=== PATIENT | male | born 1990 | race Two or more races ===

== ENCOUNTER 2023-06-29 20:09 | Emergency (ER) | payer OTHER ==
[~2023-06-29] VITALS: Ht 185.4 cm; Wt 82.0 kg
[2023-06-29] MEDS ORDERED: LORazepam 2MG/ML-1ML VIAL IV ONE ×2 (21:00→23:30)
[2023-06-29 21:03] LABS: Basophils # (auto) 0.1 10 ^3/uL (0-0.2); Basophils % (auto) 0.8 % (0.0-2.0); Eosinophils # (auto) 0 10 ^3/uL (0-0.8); Hematocrit 37.4 % (41.0-53.0); Hemoglobin 11.7 g/dL (13.5-17.5); Lymphocytes # (auto) 2.1 10 ^3/uL (0.4-5.4); Lymphocytes % (auto) 16.5 % (10.0-50.0); Mean Corpuscular Hemoglobin 21.6 pg (28.0-32.0); Mean Corpuscular Hgb Conc. 31.3 g/dL (32.0-36.0); Mean Corpuscular Volume 69.2 fL (80.0-100.0); Monocytes # (auto) 0.8 10 ^3/uL (0-1.3); Monocytes % (auto) 6.7 % (0.0-12.0); Neutrophils # (auto) 9.6 10 ^3/uL (1.6-8.6); Nucleated Red Blood Cells % 0.1 %; Red Blood Cells 5.41 10^6/uL (4.5-5.90); White Blood Cell 12.6 10^3/uL (4.4-10.8)
[2023-06-29 21:19] LABS: Alanine Aminotransferase 21 U/L (7-40); Albumin 4.1 g/dL (3.2-4.8); Alkaline Phosphatase 91 U/L (46-116); Anion Gap 13 (5-15); Aspartate Aminotransferase 30 U/L (13-40); BUN/Creatinine Ratio 7.1 (10.0-20.0); Bilirubin, Total 0.7 mg/dL (0.2-1.0); Blood Urea Nitrogen 6 mg/dL (9-23); Carbon Dioxide 24 mmol/L (20-30); Chloride 98 mmol/L (98-107); Glucose 134 mg/dL (74-106); Potassium 3.4 mmol/L (3.5-5.1); Sodium 135 mmol/L (136-145); Total Protein 7.1 g/dL (5.7-8.2)
[2023-06-29 21:21] LABS: Anisocytosis Moderate; Hypochromia Moderate; Platelet Estimate Adequate
[2023-06-29 21:22] LABS: Ovalocytes FEW
[2023-06-29] MEDS ORDERED: MVI in SODIUM CHLORIDE 0.9% 1,010 ML ONE (21:43)
[2023-06-29] MEDS ORDERED: THIAMINE 100mg/ml INJ (200mg/2ml VIAL) ONE (21:44)
[2023-06-29 21:45] VITALS: PULSE 115; RESP 16; TEMP 98.4; O2SAT 98
[2023-06-30] VITALS: BP 135/75; PULSE 113; RESP 20; O2SAT 100
[2023-06-30] MEDS ORDERED: PHEN1CAP60 PO (00:16)
[2023-06-30] MEDS ORDERED: FOLIC ACID 1 MG, MULTIPLE VITAMIN 10 ML, MAGNESIUM SULF SDV 50% 8 MEQ, THIAMINE INJ 100... INJ SCH ×5 (12:00)
== END 2023-06-30 00:15 | disposition home or self-care (01) ==
LOC: ER 20:09
DX: F10.10 Alcohol abuse, uncomplicated (principal); F17.210 Nicotine dependence, cigarettes, uncomplicated; F12.90 Cannabis use, unspecified, uncomplicated
CPT/HCPCS: 36415; 80053; 80320; 83735; 85025; 96365; 96366; 96375; 96376; 99284; J2060; J3411; J3475